=== PATIENT | female | born 1990 | race Caucasian/White ===

== ENCOUNTER 2021-06-25 04:53 | Emergency (ER) | payer OTHER ==
[~2021-06-25] VITALS: Ht 165.1 cm; Wt 81.6 kg
[2021-06-25 04:57] VITALS: BP 125/69
--- NOTE | 2021-06-25 05:02 | NUR ---
PT TAKEN TO BED 3
--- NOTE | 2021-06-25 05:04 | NUR ---
30 YO/F W C/O SORETHROAT 5/10 AND NAUSEA X3 DAYS, +CHEST PAIN AND BACK PAIN SHARP INTERMITENT X 1WEEK (NO PAIN AT THIS TIME), + ITCHY RASH TO BODYX1 WEEK, +SOB, COUGH, EAR ACHE. PINK BUMPS NOTED TO ABDOMEN AND ARMS. PT DENIES ANY FEVERS/CHILLS, V/D. PT LAYING IN BED W HOB ELEVATED, BED LOCKED INLOWEST POSITION. BREATHING EVEN AND UNLABORED. WILL CONTINUE TO MONITOR. PMH: AMANDA'S THYROIDITIS ALLERGIES:DENIES
[2021-06-25] MEDS ORDERED: ASPIRIN 325 MG TAB PO ONE (05:20)
[2021-06-25] MEDS ORDERED: NITROGLYCERIN 0.4 MG TAB SL ONE (05:20)
[2021-06-25] MEDS ORDERED: PRED20TA5 PO ×2 (05:53→10:48)
[2021-06-25] MEDS ORDERED: ONDA-188 SL (05:53)
[2021-06-25 06:00] VITALS: BP 125/69
--- NOTE | 2021-06-25 06:00 | NUR ---
Patient discharged with v/s stable. Written and verbal after care instructions given and explained. Patient alert, oriented and verbalized understanding of instructions. Ambulatory with steady gait. All questions addressed prior to discharge. ID band removed. Patient advised to follow up with PMD. Rx of PREDNISONE, ZOFRAN given. Patient educated on indication of medication including possible reaction and side effects. Opportunity to ask questions provided and answered.
[2021-06-25] MEDS ORDERED: ONDA-188 PO (10:48)
== END 2021-06-25 06:00 | disposition home or self-care (01) ==
LOC: MED 04:53
DX: R07.89 Other chest pain (principal); R05.9 Cough, unspecified; R09.89 Other specified symptoms and signs involving the circulatory and respiratory systems; E06.3 Autoimmune thyroiditis; Z79.899 Other long term (current) drug therapy
CPT/HCPCS: 81025; 93005; 99283